=== PATIENT | male | born 1955 | race Caucasian/White ===

== ENCOUNTER 2018-08-21 12:51 | Emergency (ER) | payer BC ==
[2018-08-21 13:09] VITALS: BP 127/85; PULSE 52; TEMP 97.7; BMI 26.5
--- NOTE | 2018-08-21 13:44 | PDOC ---
History of Present Illness - General Chief Complaint: Injury Stated Complaint: ANIMAL BITE Time Seen by Provider: 08/21/18 12:55 History Source: Patient Exam Limitations: No Limitations - History of Present Illness Initial Comments: 08/21/18 13:39 CHIEF COMPLAINT: Possible mouse bite today HISTORY OF PRESENT ILLNESS: 63-year-old man with no significant past medical history noted some commotion with his cat. He noted that the cat had trapped a mouse in its mouth. He went to rescue the cat and pulled the mouse away and thinks he may have been nipped on his right fifth finger over the distal finger. Potentially by the mouse. There was no break in the skin. There was no bleeding. There is no pain. There is no swelling. Patient spoke to his physician and was referred to the emergency department for a tetanus booster and an examination. REVIEW OF SYSTEMS: No fever or chills Possible bite to the right fifth finger, by a mouse No other injuries or complaints No bleeding No skin break Past History - Past Medical History Allergies/Adverse Reactions: Allergies Allergy/AdvReac Type Severity Reaction Status Date / Time No Known Allergies Allergy Verified 08/21/18 12:59 Home Medications: Ambulatory Orders Cholecalciferol (Vitamin D3) [Vitamin D3] 1,000 unit PO DAILY 08/21/18 Multivit-Min/FA/Lycopen/Lutein [Centrum Silver Men Tablet] 1 each PO DAILY 08/21 [place] Grass Extract/Quercetin [Prostate Pq Tablet] 1 each PO DAILY 08/21/18 Vitamin B Complex/Folic Acid [B-Complex Tablet] 0.4 mg PO DAILY 08/21/18 Asthma: No COPD: No Diabetes: No HTN: No Thyroid Disease: No - Immunization History Immunization Up to Date: Yes - Suicide/Smoking/Psychosocial Hx Smoking History: Never smoked Number of Cigarettes Smoked Daily: 0 Hx Alcohol Use: No Drug/Substance Use Hx: No Substance Use Type: None *Physical Exam - Vital Signs Last Vital Signs Temp Pulse Resp BP Pulse Ox 97.7 F 52 L 16 127/85 98 08/21/18 12:51 08/21/18 12:51 08/21/18 12:51 08/21/18 12:51 08/21/18 12:51 - Physical Exam Comments: 08/21/18 13:42 GENERAL: The patient is awake, alert, and fully oriented, in no acute distress. HEAD: Normal with no signs of trauma. EYES: Pupils equal, round and reactive to light, extraocular movements intact, sclera anicteric, conjunctiva clear. EXTREMITIES: The right fifth finger was examined very closely. There is no redness. There is no swelling. There is no tenderness. There is no visible break in the skin. The patient points to the pad of the distal finger where he thinks the mouse may have nicked him. There is no visible gabby discernible. NEUROLOGICAL: Normal speech, normal gait. PSYCH: Normal mood, normal affect. SKIN: Warm, Dry, normal turgor, no rashes or lesions noted. No skin break noted. Medical Decision Making - Medical Decision Making 08/21/18 13:43 Healthy 63-year-old man presents for evaluation of possible mouse bite. No visible skin break or signs of infection on examination of the right fifth finger. Impression: Exposure to a mouse, possible superficial bite, but no skin break. Risk for infection is very low in the absence of any skin break. Patient's last tetanus booster was many years ago. He will be given a tetanus booster. He has been advised to observe for signs of redness, swelling, increasing pain, or any other signs of infection. He has been advised not to start prophylactic antibiotics at this time unless signs of infection develop. *DC/Admit/Observation/Transfer Diagnosis at time of Disposition: Bitten by mouse, initial encounter - Discharge Dispostion Disposition: HOME Condition at time of disposition: Stable Decision to Admit order: No - Referrals Referrals: Karl Aldrich [Primary Care Provider] - - Patient Instructions Printed Discharge Instructions: DI for Animal Bites Additional Instructions: You were evaluated today for a possible mouse bite. Given the skin is intact, no preventive antibiotics need to be started at this time. Today, you have been given a booster vaccine (Boostrix) to update your tetanus, diphtheria and pertussis. Watch for any signs of redness, swelling, increasing pain or other symptoms at the site of the mouse bite. If any symptoms develop, follow up right away with your primary care physician or in the emergency department. - Post Discharge Activity
[2018-08-21] MEDS ORDERED: DIPHTH,PERTUSS(ACELL),TET 0.5 ML DISP.SYRIN IM ONE ×2 (13:46→13:47)
== END 2018-08-21 13:53 | disposition home or self-care (01) ==
LOC: FER 12:51 → SUPCPDRO 12:51 → FER 13:53
DX: S61.256A Open bite of right little finger without damage to nail, initial encounter (principal); W53.01XA Bitten by mouse, initial encounter; Y93.89 Activity, other specified; Y92.009 Unspecified place in unspecified non-institutional (private) residence as the place of occurrence of the external cause
CPT/HCPCS: 90715; 99281-25